=== PATIENT | male | born 1975 | race Caucasian/White ===

== ENCOUNTER 2022-10-23 11:54 | Emergency (ER) | payer OTHER, SELFPAY ==
[2022-10-23] VITALS (15 sets, daily range): BP systolic 102–126; BP diastolic 72–93; PULSE 56–80; RESP 11–19; TEMP 36.5; O2SAT 96–100
--- NOTE | 2022-10-23 12:15 | DI.RAD_ITS ---
Exam(s) XR ELBOW RT COMPLETE EXAM: XR ELBOW RT COMPLETE CLINICAL HISTORY: elbow injury. TECHNIQUE: 2D digital imaging was performed. Three views. COMPARISON: No exams were available for comparison FINDINGS: BONES: No bony destructive lesion is seen. JOINTS: There is dislocation laterally and anteriorly of the humerus with respect to the proximal rad ius and ulna. There is a tiny fracture fragment at the distal humerus. A joint effusion is seen. SOFT TISSUE: Normal. IMPRESSION: Elbow dislocation with tiny fracture fragment. DATA REPOSITORY: RADIATION DOSE DELIVERED:
--- NOTE | 2022-10-23 12:21 | ED.GENADUL_ITS ---
Discharge Plan Disposition Patient Disposition: Home Condition: Stable Discharge Details Clinical Impression: Dislocation of elbow, right, closed Primary [facility] Provider: [facility] Provider: Darren Dalton Home Meds and New Rx's Prescriptions: No Action No Known Home Meds Discharge Instructions Instructions: Elbow Dislocation (ED), Closed Reduction (ED) Additional Instructions: You may continue to use [id number] pain medication as needed for further discomfort. Please keep splint and sling in place until cleared by orthopedics. It will be very important to follow-up with local orthopedics when you get home. It is recommended that you call their office tomorrow and inform them of your right elbow dislocation so they can schedule follow-up appointment preferably within the next week. Discharge Data Discharge Date/Time-TO BE ENTERED AT DEPARTURE: 10/23/22 16:38 Medical Decision Making Patient presenting to the emergency department for chief complaint of fall while skiing. He states he fell with an outstretched arm. Since then he has had significant elbow deformity and pain with any sort of movement. Patient denies all other injury or trauma. Physical exam shows obvious deformity to the elbow with high suspicion of dislocation. Patient does have distal pulses and sensation intact to light touch. Unable to perform any range of motion due to severity of pain and discomfort. We will give patient pain medications and perform radiological imaging. Differential diagnosis to include dislocation fracture or combination of both. X-ray confirmed dislocation of the right elbow. Consented patient for close reduction of the right elbow. Did discuss case with orthopedist who came for standby assist and procedural sedation was performed by attending physician. Please see procedural documentation but patient tolerated procedure well and posterior splint was applied. Post procedure imaging was also ordered. Post procedure x-rays show appropriate relocation. Patient discharged with posterior splint and sling. Patient recommended to follow-up with local orthopedist when he returns home for further management and care of dislocated elbow. CMS was intact distal to injury prior to discharge. After discussion of diagnosis and plan of care patient has no further needs, questions, or concerns and states clear understanding to return to the emergency department for any worsening symptoms. This documentation was generated using [employer] system, please disregard any oddities of phrase or misspellings. HPI General Mode of arrival: ambulatory . Date/Time Provider Initiated Documentation: 10/23/22 11:55 . Limitations to Documentation: no limitations . Information obtained by: patient and RN notes reviewed . History of Present Illness 47 year old M presents to the emergency department with the chief complaint of Right elbow injury, described as severe, with intensity rated at 9. Quality is described as sharp, and is localized to the right and upper extremity. Patient reports no radiation. Patient started experiencing this hour(s) (1) and it has been constant. Immobilization improves symptom(s), Movement worsens symptoms . Patient notes no other symptoms.. Patient did receive the following treatments prior to arrival, splint Related Data Home Medications Medication Instructions Recorded Confirmed Unknown [No Known Home Meds] 10/23/22 10/23/22 Allergies Allergy/AdvReac Type Severity Reaction Status Date / Time No Known Allergies Allergy Unverified 10/23/22 12:01 General Stated Complaint: Orthopedic JULIANNA: 3 Review of Systems Narrative: 8 systems reviewed and unremarkable except what is marked below. Musculoskeletal Musculoskeletal: Reports as per HPI, Reports limited range of motion, Denies numbness and Reports tingling Integumentary/Breasts Skin/Breast: Denies wounds Neurologic Neurologic: Denies numbness and Reports tingling PFSH All Active Problems (Updated 10/23/22 @ 14:59 by Darren Dalton NP) Dislocation of elbow, right, closed (Acute) Social History Smoking/Tobacco Use Status: Never Smoking risk assessment performed?: Yes Alcohol Intake: current Alcohol Intake frequency: holidays/special occasions only Alcohol type: beer Drug use: Occasionally Substance use type: marijuana Do you feel safe at home: Yes Do you feel safe in your relationship?: Yes Exam Const General: cooperative and not ill appearing Orientation: alert, awake and oriented x3 HENDC Mouth: moist mucous membranes Resp Effort & Inspection: normal respiratory effort, able to speak in complete sentences and no respiratory distress Cardio Rate: regular rate Rhythm: regular rhythm Skin General skin exam: no rashes or lesions noted Neuro General: patient alert, patient awake and patient oriented x3 Sensory Exam: no sensory deficits noted Extrem General: normal exam except as noted Right upper extremity: shoulder/upper arm Details: normal to inspection; no tenderness, elbow/forearm Details: abnormal to inspection Details: obvious dislocation, tenderness and abnormal ROM Details: held in an abnormal fashion Details: in flexion and with range as follows (none), wrist Details: normal to inspection and radial pulse present; no tenderness and hand Details: normal capillary refill, neurosensory exam normal and vascular exam Details: radial pulse present and normal capillary refill Course Vital Signs Vital signs: Vital Signs Temperature 36.5 C 10/23/22 11:57 Pulse 56 L 10/23/22 11:57 Respiratory Rate 17 10/23/22 11:57 Blood Pressure 113/72 10/23/22 11:57 Pulse Oximetry 97 10/23/22 11:57 Temperature 36.5 C 10/23/22 11:57 Temperature Source Temporal Artery Scan 10/23/22 11:57 Pulse 56 L 10/23/22 11:57 Respiratory Rate 17 10/23/22 11:57 Respiratory Effort 10/23/22 12:00 Blood Pressure 113/72 10/23/22 11:57 Blood Pressure Position Sitting 10/23/22 11:57 Pulse Oximetry 97 10/23/22 11:57 Oxygen Delivery Method Room Air 10/23/22 11:57 Oxygen Flow Rate 0 10/23/22 11:57 Pain Level 10 10/23/22 11:57 Procedures Orthopedic Joint Reduction Joint #1: Time Out Performed: Yes Side: right Joint Reduction Location: elbow Analgesia: procedural sedation Technique used: traction/counter-traction and direct manipulation Post-reduction neuro exam: intact Post-reduction vascular: intact Post Reduction X-Ray Obtained: Yes Post Reduction X-Ray Results: reduced Splint Applied: Yes Patient Tolerated Procedure: well and no complications PAWSS Have you Been Recently Intoxicated or Drunk Within the Last 30 days?: No Have you Ever Experienced Previous Episodes of Alcohol Withdrawal?: No Have you ever Experienced Withdrawal Seizures?: No Have you ever Experienced Delirium Tremens(DT)s?: No Have you ever undergone Alcohol Rehabilitation Treatment (i.e, inpt ot outpatient treatment programs)?: No Have you ever Experienced Blackouts?: No Have you ever Combined Alcohol with other Downers within the last 90 days?: No Have you ever Combined Alcohol with any other Substance of Abuse during the last 90 days?: No Result: 0
[2022-10-23] MEDS: HYDROmorphone 2 MG/ML SYR 0.5 MG IVP ×3 (12:23→13:36)
--- NOTE | 2022-10-23 12:28 | NUR.NOTE ---
pt fell while skiing today and landed on right upper extremity. there is obvious deformity to right elbow. csm intact
[2022-10-23] MEDS: Normal Saline 1,000 ML 1000 ML IV (13:40)
--- NOTE | 2022-10-23 14:00 | DI.RAD_ITS ---
Exam(s) XR ELBOW RT COMPLETE POST REDU EXAM: XR ELBOW RT COMPLETE POST REDU CLINICAL HISTORY: Postreduction right elbow dislocation. TECHNIQUE: 2D digital imaging was performed. Three views. COMPARISON: CR XR ELBOW RT COMPLETE from 10/23/2022 FINDINGS: A posterior splint is now in place. The previously noted dislocation has been reduced. No fracture fragments are seen. . DATA REPOSITORY: RADIATION DOSE DELIVERED:
--- NOTE | 2022-10-23 14:29 | NUR.NOTE ---
Addendum entered by Mary Cary 10/23/22 14:35: time written in error, times should be 1353 and 1401 Original Note: Nursing Note: 1553: 1L ns hung as bolus. Propofol drawn up for MD. Watson RT in room, pt placed on 3L O2 with capnography, Dr Pravin Lainez administerd propofol, 200mg total, Orthopedist Dr Medrano, Onesimo Lovelace BURNISHER manipulated R elbow into position, splinted. 1601 pt awake and alert, tolerated well. vital signs within normal limits.
--- NOTE | 2022-10-23 14:36 | W.ED.PROC ---
Date of service: 10/23/22 Time of Service: 14:00 Procedures Procedural Sedation Indication: fracture/dislocation reduction ASA Class: I Preparation: cardiac cath lab radiology technologist applied, pulse oximeter, supplemental O2 applied, suction/airway equipment at bedside and IV secured IV Propofol dose (mg): 200 Patient Tolerated Procedure: well Complications: none Additional Comments: Patient seen, examined and discussed with Mr. Dalton. I provided procedural sedation for closed reduction of right posterior elbow dislocation performed by Mr. Dalton with Dr. Medrano in attendance.
== END 2022-10-23 16:38 | disposition home or self-care (01) ==
PROVIDERS: Emergency Provider Nurse Practitioner Family
DX: S53.104A Unspecified dislocation of right ulnohumeral joint, initial encounter (principal); W19.XXXA Unspecified fall, initial encounter; Y93.23 Activity, snow (alpine) (downhill) skiing, snowboarding, sledding, tobogganing and snow tubing
CPT/HCPCS: 24600; 73080; 96361; 96374; 96376; 99284; J1170; J3490